=== PATIENT | male | born 1990 | race Two or more races ===

== ENCOUNTER 2017-06-22 10:02 | Outpatient (CLI) | payer OTHER | END 2017-06-22 17:15 | disposition home or self-care (01) | LOC: TOM 10:02 | DX: H90.0 Conductive hearing loss, bilateral (principal) ==

== ENCOUNTER 2018-09-28 10:43 | Outpatient (CLI) | payer OTHER | END 2018-09-28 14:22 | disposition home or self-care (01) | LOC: RAD 10:43 | DX: M54.2 Cervicalgia (principal) ==